=== PATIENT | male | born 1960 | race Caucasian/White ===

== ENCOUNTER 2024-06-29 13:01 | Emergency (ER) | payer OTHER, SELFPAY ==
[2024-06-29 13:04] VITALS: BP 172/97
[2024-06-29 13:21] LABS: % Basophils 0.3 % (0-2); % Eosinophils 1.7 % (0-6); % Immature Granulocytes 0.4 % (0-0.5); % Lymphocytes 15.7 % (20.5-51.1); % Monocytes 7.3 % (1.7-9.3); % Neutrophils 74.6 % (42.2-75.2); Absolute Eosinophils 0.2 10^3/uL (0-0.7); Absolute Lymphocytes 1.7 10^3/uL (1.2-3.4); Absolute Monocytes 0.8 10^3/uL (0.1-0.6); Absolute Neutrophils 7.9 10^3/uL (1.4-6.5); Hematocrit 44.8 % (39.0-52.0); Hemoglobin 15.7 g/dL (13.0-18.0); Mean Corpuscular Hgb 30.8 pg (27.0-31.0); Nucleated Red Blood Cells % 0 % (-); Platelet Count 126 10^3/uL (130-400); Red Blood Cell Count 5.09 10^6/uL (4.70-6.10); Red Cell Dist. Width 12.3 % (11.5-14.5); White Blood Cell Count 10.6 10^3/uL (4.8-10.8)
[2024-06-29 13:37] LABS: ALT (SGPT) 51 U/L (0-50); AST (SGOT) 42 U/L (17-59); Albumin 4.4 g/dl (3.5-5.0); Alkaline Phosphatase 75 U/L (38-126); Blood Urea Nitrogen 23 mg/dl (9-20); Calcium 8.9 mg/dl (8.4-10.2); Carbon Dioxide 27 mmol/L (22-30); Chloride 107 mmol/L (98-107); Glucose 144 mg/dl (70-99); Potassium 4.8 mmol/L (3.5-5.1); Sodium 140 mmol/L (135-145); Total Bilirubin 1.5 mg/dl (0.2-1.3); Total Protein 6.8 g/dl (6.3-8.2); eGFR > 60.00
[2024-06-29 13:54] LABS: COVID-19 Antigen Negative (Negative)
[2024-06-29] MEDS: MOTRIN 600 MG PO (15:13)
--- NOTE | 2024-06-29 17:23 | ED.GENMED ---
History of Present Illness
General
Chief Complaint: Fever
Source: patient
Exam Limitations: none
Time Seen by Provider: 06/29/24 17:03
History of Present Illness
History of Present Illness:
See MDM
Past History
Past History
ED Past Medical History: HTN
ED Past Surgical History: Cholecystectomy
Social History
Tobacco: Non-smoker
Personal:
Living: with family
Phy Exam
Physical Exam
Physical Exam:
See MDM
Course
Orders/Labs/Results
Orders:
Orders
06/29/24 13:12
COVID-19 Antigen Urgent
Source: Nasal Swab
Complete Blood Count/With Diff Urgent
Comprehensive Metabolic Panel Urgent
Lyme Progressive Urgent
Comment: ADD ON
Influenza A+B Rapid Molecular Urgent
SUSAN Source: Nasal Swab
Specimen Description:
06/29/24 15:05
Ibuprofen [Motrin] 600 mg .ROUTE .STK-MED ONE
06/29/24 15:13
Ibuprofen [Motrin] 600 mg PO NOW STA
06/29/24 17:17
CR Chest - 2 Views Urgent
Comment:
Reason For Exam: Cough, fever
06/29/24 17:18
Add On- LAB Urgent
Tests Added?: Lyme Progressive
US Periph Venous LOWER Ext RT Urgent
Comment:
Reason For Exam: R calf and thigh pain
06/29/24 17:34
Urinalysis Reflex To Culture Urgent
Date Specimen was Collected: 06/29/24
Time Specimen was Collected: 17:33
Urine Microscopic Reflex Cult Urgent
Urine Culture Urgent
SUSAN Source: U
Specimen Description:
Date Specimen was Collected: 06/29/24
Time Specimen was Collected: 17:33
06/29/24 19:31
Ketorolac [Toradol] 30 mg IV NOW STA
06/29/24 19:35
Acetaminophen [Tylenol] 650 mg PO NOW STA
06/29/24 20:23
Doxycycline [Vibramycin] 100 mg PO NOW STA
Abnormal Lab Results
06/29/24 06/29/24
13:12 17:34
Plt Count 126 L 10^3/uL
(130-400)
Absolute Neuts (auto) 7.9 H 10^3/uL
(1.4-6.5)
Absolute Monos (auto) 0.8 H 10^3/uL
(0.1-0.6)
Lymphocytes % 15.7 L %
(20.5-51.1)
BUN 23 H mg/dl
(9-20)
Glucose 144 H mg/dl
(70-99)
Total Bilirubin 1.5 H mg/dl
(0.2-1.3)
ALT 51 H U/L
(0-50)
Leukocyte Esterase Rfl 1+ A
(Negative)
Urine Albumin (Reflex) 2+ A
(Neg - Trace)
06/29/24 13:12
06/29/24 13:12
Vital Signs
Initial and Last Documented VS:
Initial Vital Signs
Temp Pulse Resp BP Pulse Ox
98.8 F 89 16 172/97 97
06/29/24 13:04 06/29/24 13:04 06/29/24 13:04 06/29/24 13:04 06/29/24 13:04
Last Documented Vital Signs
Temp Pulse Resp BP Pulse Ox
101.8 F H 78 16 142/72 97
06/29/24 19:31 06/29/24 17:26 06/29/24 17:26 06/29/24 17:26 06/29/24 17:26
MDM/Problems Addressed
Differential Diagnosis Includes:
HPI and MDM Narrative:
63-year-old male presenting for evaluation of fevers. He noticed it a few days ago. Patient was in the shed spraying [id number] insecticide. He is unsure if this is related or not. He has used this insecticide in the past without
difficulty. He does complain of a mild cough. No sick contacts at home. Patient states he does live in the [place] and is outside routinely. He denies rash. Patient also complaining of right calf and thigh strain. He is on Eliquis for prior PE.
Blood work was done prior to my assessment showing normal white count, negative COVID and negative flu. On my exam, he is a soft and nontender abdomen. Lungs appear clear. Will continue the fever workup with urinalysis and chest x-ray. Posterior
pharynx clear. No rash or cellulitis noted. Given that he is outside frequently, will add Lyme titer
Physical exam
General: Well appearing and non-toxic
HEENT: protecting airway. Posterior pharynx clear
Neck: supple
CV: No evidence of cyanosis. Regular rate and rhythm
Resp: No accessory muscle use. Lungs clear
Abd: Non-distended. Soft and nontender
Extremities: No deformities. Mild tenderness to right calf without skin changes
Neuro: alert
Psych: Normal affect
Skin: Warm
Problems Addressed including Acute and Chronic Conditions affecting care:
1. Fevers
Acuity: acute
Prognosis: stable
Details: COVID and flu negative. Will add chest x-ray and urinalysis
2. Right calf pain
Acuity: acute
Prognosis: stable
Details: Likely strain will obtain ultrasound rule out DVT
Updates
Chest x-ray clear. Ultrasound negative for DVT. Ultrasound negative for infection
Given the persistent elevation of fever, I did offer admission given that we do not have a clear-cut source yet. However, both patient and feel comfortable starting doxycycline with presumed Lyme disease and going home with strict return
precautions
Differential Diagnosis (but not limited to): Pneumonia, viral syndrome, Lyme disease
Testing considered: CT abdomen/pelvis but he has no abdominal tenderness
Drug therapy (if applicable): OTC meds, please see d/c instruction regarding Rx drugs
Amount and/or Complexity of Data Reviewed
Clinical info obtained from: Patient
External data reviewed: N/A
Labs I independently reviewed (but not limited to): White blood cell count normal
Radiology: X-ray independently reviewed: Chest x-ray clear
Pulse Ox: not hypoxic
EKG independently reviewed: N/A
Media Assistant: N/A
Critical Care: N/A
Risk of Complication:
Social Determinants of health: Good social support
Discussed with other providers: N/A
Escalation of Care includes Admit/Obs: After being observed in the Emergency Department, pt stable for discharge.
Occasional wrong word or 'sound a like' substitutions may have occurred due to the inherent limitations of voice recognition software. Read the chart carefully and recognize, using context, where substitutions have occurred.
*Critical Care Note
Total Time (30-74mins, 75-104mins- exclusive of procedures): Not Applicable
ED Attending Note
-
Portions of this chart may have been created with voice recognition software.� Occasional wrong word or��sound alike� substitutions may have occurred due to the inherent limitations of voice recognition software.
Discharge Plan
Departure
Patient Disposition: Home (Routine Discharge)
Date of Disposition: 06/29/24
Time of Disposition: 20:24
Patient with high blood pressure during this ER visit?: Yes
Discharge Problem:
Fever
Instructions: Fever, Adult (DC), BLOOD PRESSURE
Prescriptions:
New
doxycycline hyclate 100 mg capsule
100 mg PO BID Qty: 20 0RF
No Action
lisinopril 10 MG tablet
10 mg PO DAILY
multivitamin [One Daily] 1 EACH tablet
1 ea PO DAILY
pantoprazole 40 MG tablet,delayed release (DR/EC)
40 mg PO DAILY Qty: 30 0RF
apixaban [Eliquis DVT-PE Treat 30D Start] 5 MG tablets,dose pack
5 - 10 mg PO DIRECTED Qty: 1 0RF
Referrals:
NONE,* [Active] -
Activity Restrictions/Additional Instructions:
Please return for any worsening symptoms.
You may return at any time if you have further concerns.
Please follow up with your doctor at the first available appointment, preferably this week.
Your workup was negative in regards to finding a source of the fever. Given the concern for Lyme's disease, doxycycline was started.
Thank you for choosing [facility].
Interventions
Interventions:
*Risk Screen - Suicide Last Done: 06/29/24 13:08
*Neglect/Abuse Screening Last Done: 06/29/24 13:08
ED- Neurological Assessment Last Done: 06/29/24 17:26
ED-Skin Assessment Last Done: 06/29/24 17:27
Discharge Date and Time
Print Language: AZERI
[2024-06-29 17:26] VITALS: BP 142/72; BMI 35.0
[2024-06-29 17:40] LABS: Urine Albumin 2+ (Neg - Trace); Urine Bilirubin Negative (Negative); Urine Character Clear (Clear); Urine Color Yellow; Urine Glucose Negative (Negative); Urine Ketone Negative (Negative); Urine Leukocyte 1+ (Negative); Urine Nitrite Negative (Negative); Urine Occult Blood Negative (Negative); Urine Urobilinogen 1+ (Neg - 1+)
[2024-06-29 18:05] LABS: Urine Squamous Cell 0-2 /LPF (Few)
[2024-06-29 18:06] LABS: Urine Red Blood Cell 0-2 /HPF (0-2); Urine White Cell 0-2 /HPF (0-5)
[2024-06-29] MEDS: TYLENOL 650 MG PO (19:54)
[2024-06-29] MEDS: VIBRAMYCIN 100 MG PO (20:37)
[2024-06-29 20:39] VITALS: BP 136/93
== END 2024-06-29 20:51 | disposition home or self-care (01) ==
LOC: EMR 13:01
PROVIDERS: Emergency Medicine; EMERGENCY PHYSICIAN Student in an Organized Health Care Education/Training Program; FAMILY PHYSICIAN Nurse Practitioner Adult Health
DX: R50.9 Fever, unspecified (principal); I10 Essential (primary) hypertension; Z90.49 Acquired absence of other specified parts of digestive tract
CPT/HCPCS: 99284; 96374; 71046; 80053; 81003; 81015; 85025; 86618; 87086; 87502; 87811; 93971

== ENCOUNTER 2024-06-30 16:52 | Inpatient (IN) | payer OTHER, SELFPAY ==
[2024-06-30] VITALS (8 sets, daily range): BP systolic 128–141; BP diastolic 73–85; BMI 34.1
[2024-06-30 11:03] LABS: % Basophils 0.3 % (0-2); % Eosinophils 0.2 % (0-6); % Immature Granulocytes 0.4 % (0-0.5); % Lymphocytes 16.5 % (20.5-51.1); % Monocytes 9.3 % (1.7-9.3); % Neutrophils 73.3 % (42.2-75.2); Absolute Immature Granulocytes 0.1 10^3/uL (0-0.05); Absolute Lymphocytes 1.9 10^3/uL (1.2-3.4); Absolute Monocytes 1.1 10^3/uL (0.1-0.6); Absolute Neutrophils 8.6 10^3/uL (1.4-6.5); Hematocrit 43.9 % (39.0-52.0); Hemoglobin 15.4 g/dL (13.0-18.0); Mean Corp Hgb Conc. 35.1 g/dL (33.0-37.0); Mean Corpuscular Hgb 30.7 pg (27.0-31.0); Mean Corpuscular Volume 87.6 fL (80.0-94.0); Nucleated Red Blood Cells % 0 % (-); Platelet Count 121 10^3/uL (130-400); Red Blood Cell Count 5.01 10^6/uL (4.70-6.10); Red Cell Dist. Width 12.3 % (11.5-14.5); White Blood Cell Count 11.8 10^3/uL (4.8-10.8)
[2024-06-30 11:18] LABS: ALT (SGPT) 49 U/L (0-50); AST (SGOT) 35 U/L (17-59); Albumin 4.3 g/dl (3.5-5.0); Alkaline Phosphatase 67 U/L (38-126); Blood Urea Nitrogen 23 mg/dl (9-20); Calcium 8.7 mg/dl (8.4-10.2); Carbon Dioxide 28 mmol/L (22-30); Chloride 106 mmol/L (98-107); Glucose 163 mg/dl (70-99); Potassium 4.5 mmol/L (3.5-5.1); Sodium 138 mmol/L (135-145); Total Bilirubin 2.7 mg/dl (0.2-1.3); Total Protein 6.6 g/dl (6.3-8.2); eGFR > 60.00
[2024-06-30 11:19] LABS: Lactic Acid 1.4 mmol/L (0.7-2.0)
--- NOTE | 2024-06-30 13:53 | ED.GENMED ---
History of Present Illness
General
Chief Complaint: Fever
Time Seen by Provider: 06/30/24 13:19
History of Present Illness
History of Present Illness:
63-year-old male presents the emergency department for evaluation of continued fever and worsening right leg redness. Was seen in the emergency department yesterday for similar symptoms, at that time had an unremarkable Doppler ultrasound and was
started on doxycycline, Lyme test is pending. Symptoms have worsened overnight. He has had shaking chills.
Past History
Past History
ED Past Medical History: HTN
ED Past Surgical History: Cholecystectomy
Social History
Tobacco: Non-smoker
Personal:
Living: with family
Review of Systems
Review of Systems
Allergies reviewed?: Yes
All Other Systems: ROS reviewed and negative except as documented in HPI and ROS
Phy Exam
Physical Exam
Physical Exam:
GEN: Well appearing, NAD, WDWN
HEENT: Oral mucosa moist, no scleral icterus
Cardiac: Regular rate
Lung: No respiratory distress, no tachypnea
MSK: No gross deformity or injuries
Skin: Good color, no pallor or jaundice. Streaking lymphangitis encompassing essentially the entire right lower extremity from the right medial malleolus to the groin
Neuro: AO x3, moves all extremities freely
Psych: Calm, cooperative
Course
Orders/Labs/Results
Orders:
Orders
06/30/24 10:55
Complete Blood Count/With Diff Urgent
Comprehensive Metabolic Panel Urgent
Lactic Acid Urgent
Blood Culture Urgent
SUSAN Source: Blood/Venous
Specimen Description:
06/30/24 13:51
CeFAZolin 2 GRAM [Ancef] 2 grams in 10 ml IV NOW
06/30/24 13:54
0.9% Sodium Chloride 1000 ml [Nss] 1,000 ml IV BOLUS
06/30/24 14:18
Blood Culture Urgent
SUSAN Source: Blood/Venous
Specimen Description:
Abnormal Lab Results
06/30/24
10:55
WBC 11.8 H 10^3/uL
(4.8-10.8)
Plt Count 121 L 10^3/uL
(130-400)
Abs Immat Gran (auto) 0.1 H 10^3/uL
(0-0.05)
Absolute Neuts (auto) 8.6 H 10^3/uL
(1.4-6.5)
Absolute Monos (auto) 1.1 H 10^3/uL
(0.1-0.6)
Lymphocytes % 16.5 L %
(20.5-51.1)
BUN 23 H mg/dl
(9-20)
Glucose 163 H mg/dl
(70-99)
Total Bilirubin 2.7 H D mg/dl
(0.2-1.3)
06/30/24 10:55
06/30/24 10:55
Vital Signs
Initial and Last Documented VS:
Initial Vital Signs
Temp Pulse Resp BP Pulse Ox
98.5 F 88 18 129/83 98
06/30/24 10:36 06/30/24 10:36 06/30/24 10:36 06/30/24 10:36 06/30/24 10:36
Last Documented Vital Signs
Temp Pulse Resp BP Pulse Ox
98.3 F 83 16 140/85 97
06/30/24 10:36 06/30/24 12:59 06/30/24 12:59 06/30/24 14:00 06/30/24 14:15
MDM/Problems Addressed
MDM/Problems Addressed:
Due to worsening symptoms despite antibiotic therapy, coupled with reported rigors suggestive of bacteremia, will admit for IV antibiotics
*Critical Care Note
Total Time (30-74mins, 75-104mins- exclusive of procedures): Not Applicable
ED Attending Note
-
Portions of this chart may have been created with voice recognition software.� Occasional wrong word or��sound alike� substitutions may have occurred due to the inherent limitations of voice recognition software.
Discharge Plan
Departure
Patient Disposition: Admit
Date of Disposition: 06/30/24
Time of Disposition: 14:03
Admit to: Med/Surg
Presentation/result/management discussed w/ accepting MD/DO: Hospitalist
Discharge Problem:
Lymphangitis
Prescriptions:
No Action
lisinopril 10 MG tablet
10 mg PO DAILY
doxycycline hyclate 100 mg capsule
100 mg PO BID Qty: 20 0RF
Rx Instructions:
start 06/29/24 for 10 days
Theragen Tablet
1 tab PO DAILY
acetaminophen [Tylenol Extended Release] 650 mg Tablet Extended Release
1,950 mg PO [id number] PRN (Reason: mild pain)
Eliquis 2.5 mg Tablet
2.5 mg PO BID
turmeric 400 mg Capsule
400 mg PO DAILY
Glucosamine Chondroitin 550-30-1 mg Capsule
1 cap PO DAILY
Referrals:
Amparo Keys CRNP [Family Provider] -
Interventions
Interventions:
*Risk Screen - Suicide Last Done: 06/30/24 13:04
*General Assessment Last Done: 06/30/24 10:36
*Neglect/Abuse Screening Last Done: 06/30/24 13:04
*ED- Fall Risk Assessment Last Done: 06/30/24 12:49
*ED COVID-19 Vaccine History Last Done: 06/30/24 12:49
ED- Neurological Assessment Last Done: 06/30/24 13:04
ED-Skin Assessment Last Done: 06/30/24 13:04
Discharge Date and Time
Print Language: [id number]
[2024-06-30] MEDS: ANCEF 10 IV ×2 (14:19→22:40)
[2024-06-30] MEDS: NSS 1000 IV ×2 (14:19→20:40)
--- NOTE | 2024-06-30 15:12 | CM ---
CM met with pt and spouse bedside
Pt and spouse reside with their adult dtr and 2 y/o granddtr in a 2[address] with 2STE, full flight to 2nd floor
Pt is indep with his ADLs, works FT remotely
Has a WW at home from prior back injury
PCP- Amparo Keys
Rx- EMMANUEL Kendrick
Discharge Disposition- anticipate home, likely no needs
--- NOTE | 2024-06-30 17:11 | HPS.HSE ---
Addendum entered and electronically signed by Yany Thomas MD 06/30/24 18:19:
I personally performed a history and physical exam of the patient and discussed management with the resident. I reviewed the resident's note and agree with the documented findings and plan of care HPI/CC.
GENERAL: well developed, well nourished, male in no apparent distress
HEENT: NC/AT
HEART: regular rate and rhythm, +S1, +S2
LUNGS : clear to auscultation bilaterally
ABDOM: soft, nontender, nondistended, + bowel sounds
EXT: no cyanosis, clubbing, or edema--red streak, warm to touch, from ankle to inner thigh left leg with tender left groin LAD
NEUROLOGIC: grossly intact
Lymphangitis with possible bacteremia (given fever and rigors at home)--does not meet SIRS or sepsis criteria on admission--likely skin bacteria--lyme pending, had 2 doses doxy--cont ancef--IVF--follow blood cultures- Recommended Td vaccination
(working on taking down an old shed)
History of pulmonary embolism-Had 1 attack of pulmonary embolism in 2019 with multiple clots-Following with pulmonology, Dr Solis-Continue his Eliquis 2.5 mg twice daily
Essential Hypertension- Continue lisinopril
Nausea/Diarrhea--Had 2 episodes of diarrhea this morning-No abdominal pain-Patient reports having diarrhea when he has any type of antibiotics-secondary to taking doxycycline-No melena
Elevated total bilirubin levels--possibly due to bacteremia?--Gilbert's disease?
DVT proph-- On Eliquis
CODE STATUS-- Full code
Original Note:
Family Physician
-
Family Physician: SANDY Duarte
Chief Complaint
-
Right leg pain and feeling fatigue
History of Present Illness
Patient is a 63-year-old male with a past medical history of pulmonary embolism and hypertension who presented to ER today after noticing redness on his right leg. The patient reported having some whole body aches since Saturday evening. The
following day, he had fevers and rigors with a temperature of around 103. He took some Tylenol and it helped him to decrease his fever. On Saturday, he felt pain and pulling on his right leg and presented to the ER for which he was obtained right
leg Doppler ultrasound which was not remarkable. Due to his history of swelling and whole body ache, Lyme test was ordered and patient was started on doxycycline and sent to the home. This morning at 2 AM, the patient started to have rigors,
chills and fever of 105. Additionally, his noticed redness starting from his ankle and radiating to his inguinal area. The patient reports he has been splitting rudolph as a hobby for a long time and has had small skin injuries from wood
chips. He denies any traumas, tick bites, spider bites or any bug bites.
Medical History
Past Medical History
Past Medical History: Reports HTN and Other (Pulmonary embolism)
Past Surgical History: Reports Cholecystectomy
Social History
Tobacco: Non-smoker
Alcohol: None
Drug: None
Personal:
Living: With Family
Employment: Employed
Family History
Family History: Other (Sister has endometrial cancer, father had heart attack at the age of 55)
Allergies / Home Medications
Allergies reflects when Allergies were last updated in [facility].
Home Medications with original date entered in [facility]
Allergy/Medication List:
Allergies
Allergy/AdvReac Type Severity Reaction Status Date / Time
No Known Allergies Allergy Verified 06/30/24 12:58
Home Medications
lisinopril 10 mg tablet 10 mg PO DAILY Blood pressure 12/06/20
doxycycline hyclate 100 mg capsule 100 mg PO BID #20 caps 06/29/24
acetaminophen 650 mg tablet,extended release 1,950 mg PO [id number] PRN mild pain 06/30/24
apixaban 2.5 mg tablet (Eliquis) 2.5 mg PO BID 06/30/24
glucosamine sulf dipot chlr,msm,chond 550 mg-C 30 mg-torito 1 mg capsule (Glucosamine Chondroitin) 1 cap PO DAILY 06/30/24
therapeutic multivitamin 1 tab PO DAILY 06/30/24
turmeric 400 mg capsule 400 mg PO DAILY 06/30/24
Review of Systems
-
History Source: Patient
EENT: Reports No Symptoms
Respiratory: Reports No Symptoms
Cardiac: Reports No Symptoms
Abdomen/GI: Reports Diarrhea
: Reports No Symptoms
Musculoskeletal: Reports Muscle Pain (Right leg pain)
Skin: Reports See HPI and Other
Neurological: Reports No Symptoms
Physical Exam
Vital Signs
Vital Signs
Temp Pulse Resp BP Pulse Ox
99.4 F 88 18 141/76 96
06/30/24 17:09 06/30/24 17:09 06/30/24 17:09 06/30/24 17:09 06/30/24 17:09
Physical Exam
General: Well Developed, Well Nourished, Conversant and Pain
HEENT: NormoCephalic and Anicteric
Respiratory: Clear
Cardiac: S1/S2 and Regular Rhythm
GI: Soft, Non Tender and Non Distended
Musculoskeletal: No Clubbing, No Cyanosis, No Edema and Other (Redness starting from the right ankle and radiating to right inguinal area/small lymph nodes palpated on the right inguinal area)
Skin: Warm and Other (Redness on the right leg)
Neuro: Awake, Alert, Oriented and AO x 3
Psych: Calm
Laboratory Results
-
06/30/24 10:55
06/30/24 10:55
Laboratory Results
Lactic Acid 1.4 mmol/L (0.7-2.0) 06/30/24 10:55
Total Bilirubin 2.7 mg/dl (0.2-1.3) H D 06/30/24 10:55
AST 35 U/L (17-59) 06/30/24 10:55
ALT 49 U/L (0-50) 06/30/24 10:55
Alkaline Phosphatase 67 U/L (38-126) 06/30/24 10:55
Impression/Plan
-
IMPRESSION: Patient is a 63-year-old male with a past medical history of pulmonary embolism and hypertension who presented to the ER this morning complaining from fever, episodes of rigors, right leg pain and redness on his right leg. The patient
was admitted with diagnosis of lymphangitis.
# Lymphangitis with possible bacteremia
-Patient did not meet 2 criteria for SIRS(WBC <12, heart rate<90, RR<20)-fever measured as 98.3 at admission
- Given 1 dose of 2 g cefazolin at ER
-Continue cefazolin 2 g every 8H
-Complete another 1000 ml of IV saline
-Follow-up blood cultures
-Physical exam unlikely for Lyme disease -Lyme test ordered by ED [id number] results
- Recommended Td vaccination
# History of pulmonary embolism
-Had 1 attack of pulmonary embolism in 2019 with multiple clots
-Following with pulmonology, Dr Solis
-Continue his Eliquis 2.5 mg twice daily
# Hypertension
- Continue lisinopril
- Follow-up BPs
# Diarrhea
-Had 2 episodes of diarrhea this morning
-No abdominal pain
-Patient reports having diarrhea when he has any type of antibiotics-secondary to taking doxycycline
-No melena
-Follow-up bowel movements
# Nausea
- Patient reports mild nausea
- As needed antiemetics
# Elevated total bilirubin levels
--Can be secondary due to bacteremia
- History of cholecystectomy years ago
- No right upper quadrant epigastric pain
- LFTs WNL
-Not likely secondary due to doxycycline
https://www.ncbi.nlm.nih.gov/books/ADZ493986/
- Follow-up TB, LFTs
#DVT prophylaxis
- On Eliquis
# CODE STATUS: Full code
[2024-06-30] MEDS: ELIQUIS 2.5 MG PO (20:40)
[2024-06-30] MEDS: TYLENOL 650 MG PO (22:42)
[2024-07-01] MEDS: TYLENOL PO ×5 (05:42→23:38)
[2024-07-01] MEDS: ANCEF 10 IV ×3 (05:47→21:18)
[2024-07-01 07:21] VITALS: BP 146/82
--- NOTE | 2024-07-01 07:35 | W.PN.HOSP.TC ---
Addendum entered and electronically signed by Yany Thomas MD 07/01/24 15:20:
I saw and evaluated the patient independently. I reviewed the resident�s note and agree with findings and plan as documented by Dr. Warner.
GENERAL: well developed, well nourished, male in no apparent distress
HEENT: NC/AT
HEART: regular rate and rhythm, +S1, +S2
LUNGS : clear to auscultation bilaterally
ABDOM: soft, nontender, nondistended, + bowel sounds
EXT: no cyanosis, clubbing, or edema--red streak, warm to touch, from ankle to inner thigh left leg with tender left groin LAD improving
NEUROLOGIC: grossly intact
Lymphangitis with possible bacteremia (given fever and rigors at home)--does not meet SIRS or sepsis criteria on admission--likely skin bacteria--lyme pending, had 2 doses doxy--cont ancef for another day--stop IVF-- blood cultures neg to date-
Recommended Td vaccination (working on taking down an old shed)
History of pulmonary embolism-Had 1 attack of pulmonary embolism in 2019 with multiple clots-Following with pulmonology, Dr Solis-Continue his Eliquis 2.5 mg twice daily
Essential Hypertension- Continue lisinopril
Nausea/Diarrhea--Had 2 episodes of diarrhea this morning-No abdominal pain-Patient reports having diarrhea when he has any type of antibiotics-secondary to taking doxycycline-No melena
Elevated total bilirubin levels--possibly due to bacteremia?--Gilbert's disease?--improved with IVF
DVT proph-- On Eliquis
CODE STATUS-- Full code
Original Note:
Today's Communication/Plan
-
-Follow blood culture
-Follow vitals, temperature curve
Assessment / Plan
Assessment / Plan
# Lymphangitis with possible bacteremia
-Patient did not meet 2 criteria for SIRS
-WBC decreased and in WNL
-Improvement with the redness on right medial area
-Continue cefazolin 2 g every 8H for now
-Blood cultures final pending-prelim no growth
-Physical exam unlikely for Lyme disease -Lyme test ordered by ED yesterday-still pending
-Recommended Td vaccination
# History of pulmonary embolism
-Had 1 attack of pulmonary embolism in 2019 with multiple clots
-Following with pulmonology, Dr Solis
-Continue his Eliquis 2.5 mg twice daily
# Hypertension
-Stable
- Continue lisinopril
- Follow-up BPs
# Diarrhea
-Improved-No more episodes since the admission
-Had 2 episodes of diarrhea on 06/30-
-No abdominal pain
-No melena
-Follow-up bowel movements
# Nausea
- Patient reports mild nausea
- As needed antiemetics
# Elevated total bilirubin levels
--Can be secondary due to bacteremia
- History of cholecystectomy years ago
- No right upper quadrant epigastric pain
- LFTs WNL
-Not likely secondary due to doxycycline
https://www.ncbi.nlm.nih.gov/books/GDX240429/
- Follow-up TB, LFTs
#DVT prophylaxis
- On Eliquis
# CODE STATUS: Full code
Anticipated Discharge: 24 - 48 hours
Subjective/Interval History
-
Date of Service: July 01, 2024
Patient reports still feeling fatigue. Denies any episodes of chills or rigors since admission. Reports sweating after given second dose of cefazolin at the hospital
Objective Data
-
Labs:
Laboratory Results
07/01/24
07:28
WBC Pending
Hgb Pending
Hct Pending
Plt Count Pending
Sodium Pending
Potassium Pending
Chloride Pending
Carbon Dioxide Pending
BUN Pending
Creatinine Pending
Glucose Pending
Calcium Pending
Vital Signs:
Vital Signs
Temp Pulse Resp BP Pulse Ox
98.2 F 77 17 146/82 97
07/01/24 07:21 07/01/24 07:21 07/01/24 07:21 07/01/24 07:21 07/01/24 07:21
I&O
06/30/24 07/01/24 07/02/24
06:59 06:59 06:59
Intake Total 480 / 480
Balance 480 / 480
Review of Systems
-
EENT: Reports No Symptoms Reported
Respiratory: Reports No Symptoms
Cardiac: Reports No Symptoms
Abdomen/GI: Reports No Symptoms
Musculoskeletal: Reports Other (right leg pain)
Skin: Reports Other (redness on right leg)
Neuro: Reports No Symptoms
Physical Exam
-
General: Well Developed, Well Nourished and No Apparent Distress
HEENT: Normocephalic and Atraumatic
Respiratory: Clear to Auscultation
Cardiac: Regular Rhythm and S1/S2
GI: Soft, Nontender and Nondistended
Musculoskeletal: No Clubbing, No Cyanosis and No Edema
Skin: Warm, IV Access / Catheter Site and Other (Redness starting from the right ankle and radiating to right inguinal area)
Neuro: Awake, Alert, Oriented and AO x 3
Psych: Calm
[2024-07-01] MEDS: THERAGRAN 1 TABLET PO (07:56)
[2024-07-01] MEDS: ELIQUIS 2.5 MG PO ×2 (07:56→21:18)
[2024-07-01] MEDS: ZESTRIL 10 MG PO (07:56)
[2024-07-01] MEDS: NSS 1000 IV (08:00)
[2024-07-01 08:08] LABS: Hematocrit 39.2 % (39.0-52.0); Hemoglobin 13.4 g/dL (13.0-18.0); Mean Corp Hgb Conc. 34.2 g/dL (33.0-37.0); Mean Corpuscular Hgb 30.2 pg (27.0-31.0); Mean Corpuscular Volume 88.3 fL (80.0-94.0); Mean Platelet Volume 9.3 fL (7.4-10.4); Platelet Count 133 10^3/uL (130-400); Red Blood Cell Count 4.44 10^6/uL (4.70-6.10); Red Cell Dist. Width 12.4 % (11.5-14.5); White Blood Cell Count 7.6 10^3/uL (4.8-10.8)
[2024-07-01 08:34] LABS: Blood Urea Nitrogen 22 mg/dl (9-20); Calcium 8.3 mg/dl (8.4-10.2); Carbon Dioxide 25 mmol/L (22-30); Chloride 111 mmol/L (98-107); Estimated Creatinine Clearance 88 ml/min; Glucose 119 mg/dl (70-99); Potassium 4.5 mmol/L (3.5-5.1); Sodium 138 mmol/L (135-145); eGFR > 60.00
[2024-07-01 12:09] LABS: Direct Bilirubin 0.2 mg/dl (0.0-0.4)
[2024-07-01 14:55] VITALS: BP 135/74
--- NOTE | 2024-07-01 16:07 | CM ---
Patient seen at bedside on 1 acute with . Patient stated that he was eager to go home with family. CM will continue to follow for discharge planning needs.
Plan; home with no needs vs home with VN
[2024-07-01 23:00] VITALS: BP 138/71
[2024-07-02] MEDS: TYLENOL PO ×2 (06:22→13:19)
[2024-07-02] MEDS: ANCEF 10 IV ×2 (06:22→13:18)
--- NOTE | 2024-07-02 06:39 | W.PN.HOSP.TC ---
Addendum entered and electronically signed by Yany Thomas MD 07/02/24 12:44:
I saw and evaluated the patient independently. I reviewed the resident�s note and agree with findings and plan as documented by Dr. Warner.
GENERAL: well developed, well nourished, male in no apparent distress
HEENT: NC/AT
HEART: regular rate and rhythm, +S1, +S2
LUNGS : clear to auscultation bilaterally
ABDOM: soft, nontender, nondistended, + bowel sounds
EXT: no cyanosis, clubbing, or edema--red streak, warm to touch, from ankle to inner thigh left leg with tender left groin LAD improved--redness left in groin--LAD less tender
NEUROLOGIC: grossly intact
Lymphangitis with possible bacteremia (given fever and rigors at home)--does not meet SIRS or sepsis criteria on admission--likely skin bacteria--lyme pending, had 2 doses doxy--cont ancef for another day--stop IVF-- blood cultures neg to date-
Recommended Td vaccination (working on taking down an old shed)
History of pulmonary embolism-Had 1 attack of pulmonary embolism in 2019 with multiple clots-Following with pulmonology, Dr Solis-Continue his Eliquis 2.5 mg twice daily
Essential Hypertension- Continue lisinopril
Nausea/Diarrhea--Had 2 episodes of diarrhea this morning-No abdominal pain-Patient reports having diarrhea when he has any type of antibiotics-secondary to taking doxycycline-No melena
Elevated total bilirubin levels--possibly due to bacteremia?--Gilbert's disease?--improved with IVF
DVT proph-- On Eliquis
CODE STATUS-- Full code
Original Note:
Today's Communication/Plan
-
Discharge
Assessment / Plan
Assessment / Plan
# Lymphangitis with possible bacteremia
-Patient did not meet 2 criteria for SIRS
-WBC decreased and in WNL
-Improvement with the redness on right medial area
-Continue cefazolin 2 g every 8H for now
-Blood cultures final pending-prelim no growth
-Physical exam unlikely for Lyme disease -Lyme test ordered by ED-still pending
-Recommended Td vaccination at OP setting
# History of pulmonary embolism
-Had 1 attack of pulmonary embolism in 2019 with multiple clots
-Following with pulmonology, Dr Solis
-Continue his Eliquis 2.5 mg twice daily
# Hypertension
-Stable
-Continue lisinopril
-Follow-up BPs
# Diarrhea
-Improved-No more episodes since the admission
-Had 2 episodes of diarrhea on 06/30-
-No abdominal pain
-No melena
-Follow-up bowel movements
# Nausea
- Patient reports mild nausea
- As needed antiemetics
# Elevated total bilirubin levels
-Improved
-TB in WNL
-Can be secondary due to bacteremia
-History of cholecystectomy years ago
-No right upper quadrant epigastric pain
-LFTs WNL
-Not likely secondary due to doxycycline
https://www.ncbi.nlm.nih.gov/books/AZU930518/
- Follow-up TB, LFTs
#DVT prophylaxis
- On Eliquis
# CODE STATUS: Full code
Anticipated Discharge: Today
Subjective/Interval History
-
Date of Service: July 02, 2024
The patient reports feeling better. Denies fever and chills, rigors since the admission. Also reports his right leg pain get better.
Objective Data
-
Labs:
Laboratory Results
07/02/24 07/02/24
06:36 06:37
WBC Pending
Hgb Pending
Hct Pending
Plt Count Pending
Sodium Pending
Potassium Pending
Chloride Pending
Carbon Dioxide Pending
BUN Pending
Creatinine Pending
Glucose Pending
Calcium Pending
Total Bilirubin Pending
AST Pending
ALT Pending
Alkaline Phosphatase Pending
Vital Signs:
Vital Signs
Temp Pulse Resp BP Pulse Ox
98.0 F 81 16 138/71 96
07/01/24 23:00 07/01/24 23:00 07/01/24 23:00 07/01/24 23:00 07/02/24 00:24
I&O
06/30/24 07/01/24 07/02/24
06:59 06:59 06:59
Intake Total 480 / 480 720 / 720
Balance 480 / 480 720 / 720
Review of Systems
-
EENT: Reports No Symptoms Reported
Respiratory: Reports No Symptoms
Cardiac: Reports No Symptoms
Abdomen/GI: Reports No Symptoms
Genitourinary: Reports No Symptoms
Musculoskeletal: Reports Other (Right leg pain)
Skin: Reports Other (See HPI)
Neuro: Reports No Symptoms
Physical Exam
-
General: Well Developed and Well Nourished
HEENT: Normocephalic and Atraumatic
Respiratory: Clear to Auscultation
Cardiac: Regular Rhythm and S1/S2
GI: Soft, Nontender and Nondistended
Musculoskeletal: No Clubbing, No Cyanosis, No Edema and Other (Rigth leg pain )
Skin: Warm, IV Access / Catheter Site (on left arm ) and Other (Redness on right leg medial area-improved)
Neuro: Awake, Alert, Oriented and AO x 3
Psych: Calm
[2024-07-02 07:46] LABS: Blood Urea Nitrogen 19 mg/dl (9-20); Glucose 116 mg/dl (70-99)
[2024-07-02 07:47] LABS: AST (SGOT) 24 U/L (17-59); Albumin 3.3 g/dl (3.5-5.0); Carbon Dioxide 25 mmol/L (22-30); Chloride 112 mmol/L (98-107); Estimated Creatinine Clearance 97 ml/min; Total Bilirubin 0.5 mg/dl (0.2-1.3); Total Protein 5.7 g/dl (6.3-8.2); eGFR > 60.00
[2024-07-02 07:56] LABS: Hematocrit 38.2 % (39.0-52.0); Hemoglobin 13.4 g/dL (13.0-18.0); Mean Corp Hgb Conc. 35.1 g/dL (33.0-37.0); Mean Corpuscular Hgb 30.5 pg (27.0-31.0); Mean Corpuscular Volume 86.8 fL (80.0-94.0); Mean Platelet Volume 9.4 fL (7.4-10.4); Platelet Count 152 10^3/uL (130-400); Red Cell Dist. Width 12.3 % (11.5-14.5); White Blood Cell Count 5.7 10^3/uL (4.8-10.8)
[2024-07-02 07:57] LABS: ALT (SGPT) 28 U/L (0-50); Alkaline Phosphatase 67 U/L (38-126); Calcium 8.4 mg/dl (8.4-10.2); Potassium 4.5 mmol/L (3.5-5.1); Sodium 141 mmol/L (135-145)
[2024-07-02 08:00] VITALS: BP 143/84
--- NOTE | 2024-07-02 08:58 | W.DCSUMMARY ---
Addendum entered and electronically signed by Yany Thomas MD 07/02/24 12:46:
Read, reviewed, and agree. See same day progress note for additional details. Time spent coordinating care, DC planning, review of DC plan of care with resident, transition of care, review of records in EMR, med rec, consults, notes, d/w
consultants, nursing, family, and CM = 20 minutes
Original Note:
Discharge Summary
Discharge Data
Date of Admission: 06/30/24
Date of Discharge: 07/02/24
-
Pending Results: No
Hospital Course
Disposition : Home
Primary care physician : Amparo Keys CRNP
Principal Discharge diagnosis :Lymphangitis with possible bacteremia,Nausea/Diarrhea, Elevated total bilirubin levels
Chronic Discharge diagnosis : History of pulmonary embolism, Essential Hypertension
Hospital Course : The patient presented to ER on 06/29/24 complaining from right leg pain, fever and feeling fatigue. He was obtained right lower extremity US and Chest X ray given history of pulmonary embolism and, the results were not
remarkable. His CBC, CMP and EKG was not remarkable at that time too. He was discharged with 10 days course of doxycycline with a concern of Lyme disease and ordered lyme test. Following his discharge, the patient kept having fever, chills and
rigors and feeling fatigue The patient presented to ER again on 06/30/24 complaining from redness, pain on his right leg. The patient reported that the redness was the new symptom. He was admitted with a diagnosis of Lymphangitis. His lab
results was significant for elevated WBC to 11.8 and TB to 2.7. He was started on IV cefazolin. His symptoms including redness and pain of right leg gradually improved and his antibiotic decided to be switched to oral Doxycycline. His WBC and TB
level came back to normal levels. His diarrhea and nausea resolved. The patient was prescribed Doxycycline on his previous ER admission and took only 2 pills of 10 days of his course. He was recommended to continue and complete his antibiotics
course. He was also recommended to have TD vaccination at his PCP office given he has been [employer] as a hobby.
#Other chronic problems include History of pulmonary embolism, Essential Hypertension. These chronic disease were stable and were treated as able to.
Important imaging findings :
06/29/24 US Periph Venous LOWER Ext RT
Right lower extremity peripheral venous duplex ultrasound
CPT: 88966
INDICATION: Right lower extremity pain and swelling, edema.63-year-old with right calf and thigh pain
COMPARISON: Bilateral lower extremity venous ultrasound from December 06, 2020.
FINDINGS: Duplex venous ultrasound of the right lower extremity is performed with robbins scale, color Doppler, and spectral Doppler imaging.
There is normal compressibility and color Doppler imaging of the right deep venous system from the common femoral vein through the posterior tibial vein with no evidence for deep venous thrombosis. The proximal right greater saphenous vein is also
patent.Normal spectral Doppler waveforms are present.
IMPRESSION: No evidence of deep venous thrombosis of the right lower extremity.
06/29/24 CR Chest - 2 Views
CLINICAL INDICATION: Cough, fever
TECHNIQUE: 2 views of chest performed.
COMPARISON: Previous chest radiograph of January 23, 2021.
FINDINGS: The lungs appear clear. The cardiac silhouette, vascular markings, and mediastinal shadow appear normal.
Surgical clips in the right upper quadrant compatible with previous cholecystectomy.
IMPRESSION:
No evidence of active cardiopulmonary disease.
Procedure findings :
Discharge Plan
-
Patient Disposition: Home (Routine Discharge)
Discharge Diagnosis/Procedures: Lymphangitis with possible bacteremia
History of pulmonary embolism
Elevated total bilirubin levels
Hypertension
Diarrhea
Diet: Regular
Activity: No restrictions and As tolerated
Driving Restrictions: As prior to admission
Referrals:
Amparo Keys CRNP [Family Provider] - in less than 1 week
(Follow up with your PCP to be checked for CBC and CMP and Recommended Td vaccination
)
Prescriptions:
Continued
lisinopril 10 MG tablet
10 mg PO DAILY
therapeutic multivitamin Tablet
1 tab PO DAILY
acetaminophen 650 mg Tablet Extended Release
1,950 mg PO [id number] PRN (Reason: mild pain)
Eliquis 2.5 mg Tablet
2.5 mg PO BID
turmeric 400 mg Capsule
400 mg PO DAILY
Glucosamine Chondroitin 550-30-1 mg Capsule
1 cap PO DAILY
doxycycline hyclate 100 mg capsule
100 mg PO BID Qty: 20 0RF
Rx Instructions:
start 07/02/24 and take remaining of the course
Discharge Orders:
Discharge Patient (As Directed); Ordered 07/02/24
Ordered By: Acacia Warner
Discharge Date and Time
Print Language: TOGOLESE
[2024-07-02] MEDS: ELIQUIS 2.5 MG PO (09:13)
[2024-07-02] MEDS: ZESTRIL 10 MG PO (09:13)
[2024-07-02] MEDS: THERAGRAN 1 TABLET PO (09:13)
--- NOTE | 2024-07-02 09:36 | CM ---
Met with patient and his daughter at bedside to discuss discharge plan
Plan: Discharge to home when medically stable; no needs anticipated; family will transport home
--- NOTE | 2024-07-02 13:02 | CM ---
Patient seen at bedside with physician and daughter. Patient for discharge home today following antibiotic dose at 2pm. Patient for PO antibiotics per physician at home. Patient family to transport, no needs anticipated.
CM will be available if needed for discharge planning.
Plan; home with no needs today
[2024-07-02 13:38] VITALS: BP 168/86
== END 2024-07-02 14:00 | disposition home or self-care (01) | DRG 603 ==
LOC: 1 ACUTE 16:52
PROVIDERS: Emergency Medicine; Student in an Organized Health Care Education/Training Program; ADMITTING PHYSICIAN Internal Medicine; EMERGENCY PHYSICIAN Student in an Organized Health Care Education/Training Program; FAMILY PHYSICIAN Nurse Practitioner Adult Health
DX: I89.1 Lymphangitis (principal); R78.81 Bacteremia; Z86.711 Personal history of pulmonary embolism; Z79.01 Long term (current) use of anticoagulants; I10 Essential (primary) hypertension; Z90.49 Acquired absence of other specified parts of digestive tract; Z82.49 Family history of ischemic heart disease and other diseases of the circulatory system
CPT/HCPCS: 80048; 80053; 82247; 82248; 83605; 85025; 85027; 87040; 96361; 96374; 99284

== ENCOUNTER → 2024-08-23 12:35 | Outpatient (REF) | payer OTHER, SELFPAY | LOC: PAVMRI 12:35 | PROVIDERS: ATTENDING PHYSICIAN Nurse Practitioner Family; FAMILY PHYSICIAN Internal Medicine | DX: M25.511 Pain in right shoulder (principal) | CPT/HCPCS: 73221 ==

== ENCOUNTER → 2025-02-09 08:23 | Outpatient (REF) | payer MEDICARE, OTHER, SELFPAY | LOC: RAD 08:23 | PROVIDERS: ATTENDING PHYSICIAN Internal Medicine | DX: M25.552 Pain in left hip (principal) | CPT/HCPCS: 73502 ==